=== PATIENT | female | born 1985 | race Caucasian/White ===

== ENCOUNTER → 2016-05-11 | Outpatient (CLI) | payer BC ==
[~2016-05-11] MED LIST: HYDR25SU20 PR; NITR1OIN TOP
--- NOTE | 2016-05-11 16:42 | MAMMOGRAPHY REPORT ---
UNILATERAL RIGHT DIGITAL DIAGNOSTIC MAMMOGRAM TOMOSYNTHESIS WITH CAD AND TARGETED RIGHT ULTRASOUND: 05/11/2016 CLINICAL HISTORY: 30-year-old woman with no family history of breast cancer presented to her physici an with pain in the right upper outer quadrant for a few months. On physical exam her doctor palpat ed a possible mass in the 10:00 axis, within the area of pain pointed out by the patient. TECHNIQUE: Right CC and MLO 2-D digital and tomosynthesis images, standard 2-D right XCCL, spot mag nification CC and ML views were obtained. COMPARISON: No prior exams were available for comparison. BREAST COMPOSITION: The tissue of the right breast is heterogeneously dense, which may obscure smal l masses. FINDINGS: A triangular skin marker overlies the upper outer posterior right breast, denoting the pal pable lump identified by the patient's physician. There are a few scattered punctate microcalcifica tions and a loose grouping of microcalcifications in the lower outer anterior right breast, for whic h additional spot magnification views were obtained. On spot magnification, the microcalcifications are loosely grouped, round and punctate and some possibly demonstrate layering on the spot magnific ation MLO view. They measure approximately 18 x 8 mm. However, given that no prior exams are avail able to assess stability and not all of the microcalcifications layer, options of stereotactic guide d biopsy versus short interval follow-up exams were provided. No other suspicious mass or senior net developer architect ural distortion is seen throughout the right breast. Targeted ultrasound was performed in the lateral right breast in the areas of pain pointed out by th e patient (approximate 9:00 to 11:00 axes, 10 cm from the nipple) particular attention was also paid to the palpable lump identified by the patient's physician, in which the patient was also able to p oint out in the approximate 10:00 breast, 9 cm from the nipple. Normal dense fibroglandular tissue is seen without a discrete solid or cystic mass throughout the visualized lateral right breast. IMPRESSION: ACR-BI-RADS CATEGORY 3: PROBABLY BENIGN, TARGETED ULTRASOUND ACR-BI-RADS CATEGORY 3: AL OBABLY BENIGN 1. There is no suspicious mammographic or sonographic abnormality in the upper outer quadrant of th e right breast to explain the nonfocal mastalgia. Therefore, clinical follow-up is recommended. 2. No suspicious mammographic or sonographic abnormality in the area of palpable lump identified by the patient's physician. Clinical follow-up is also recommended as biopsy of a clinically suspicio us mass should not be precluded by negative imaging. 3. A short interval follow-up diagnostic mammogram including spot magnification views of the right breast is recommended in 6 months, to ensure stability of a grouping of round and punctate microcalc ifications in the lower outer anterior breast. These most likely represent benign fibrocystic serrano es but given that no prior exams are available to assess stability and not all of the microcalcifica tions layer, close follow-up is needed. These results and recommendations were discussed with the patient at the time of the exam. Approximately 10% of breast cancers are not detected with mammography. A negative mammographic repor t should not delay biopsy if a clinically suggestive mass is present. Keeley Singh M.D. ay/:05/11/2016 14:57:41 Critical Care Clinical Nurse Specialist: Nicole PARKER(Kim)(Ingris), [facility] letter sent: Follow Up Recommended 3 BI-RADS Code: ACR-BI-RADS Category 3: Probably Benign Ultrasound BI-RADS: ACR-BI-RADS Category 3: P robably Benign
== END | disposition home or self-care (01) ==
LOC: C.MAMM 13:41
PROVIDERS: ATTEND Nurse Practitioner Family
DX: N63 Unspecified lump in breast (principal); R92.0 Mammographic microcalcification found on diagnostic imaging of breast

== ENCOUNTER → 2016-11-10 | Outpatient (CLI) | payer BC ==
--- NOTE | 2016-11-10 13:10 | MAMMOGRAPHY REPORT ---
UNILATERAL RIGHT DIGITAL DIAGNOSTIC MAMMOGRAM TOMOSYNTHESIS WITH CAD: 11/10/2016 CLINICAL HISTORY: 31 year-old woman presents to follow-up a grouping of round and punctate microcalci fications in the lower outer anterior right breast. She reports the somewhat cyclical fullness and p ain in the superior right breast is still present. TECHNIQUE: Right breast tomosynthesis CC and MLO, spot magnification right CC and ML views were obtai greyson. Current study was also evaluated with a Computer Aided Detection (CAD) system. COMPARISON: Comparison is made to exams dated: 05/11/2016 mammogram and 05/11/2016 ultrasound - [facility]. BREAST COMPOSITION: The tissue of the right breast is extremely dense, which lowers the sensitivity of mammography. FINDINGS: The parenchyma pattern of the right breast is similar to the 05/11/2016 mammograms. An 11 mm grouping of round and punctate microcalcifications in the lower outer anterior right breast is sta ble based on the reconstructed C-view appearance. No suspicious mass, architectural distortion or ne w microcalcifications are seen in the right breast. When evaluating the spot magnification views, so me of the microcalcifications currently appear to layer on the spot magnification ML view, suggesting benign milk of calcium. Additionally, they are less conspicuous and smudgy on the spot magnificatio n CC view. Given that not all of the calcifications layer, another short interval follow-up diagnost ic mammogram with repeat spot magnification views is recommended in 6 months to ensure longer stabili ty. IMPRESSION: ACR-BI-RADS CATEGORY 3: PROBABLY BENIGN 1. Another short interval follow-up right diagnostic mammogram and spot magnification views is recom mended to ensure longer stability of a probably benign grouping of round and punctate microcalcificat ions in the lower outer anterior right breast, some of which demonstrate layering on the current ML v iew suggesting benign milk of calcium. 2. Continued clinical follow-up is recommended for the cyclical pain and fullness in the superior ri ght breast. These results and recommendations were discussed with the patient at the time of the exam. She tenta tively scheduled a follow-up appointment prior to leaving our department. Approximately 10% of breast cancers are not detected with mammography. A negative mammographic report should not delay biopsy if a clinically suggestive mass is present. Keeley Singh M.D. ay/:11/10/2016 08:48:23 Pain Management Nurse: Hilda Sandoval RT(R)(M), [facility] letter sent: Follow Up Recommended 3 BI-RADS Code: ACR-BI-RADS Category 3: Probably Benign
== END | disposition home or self-care (01) ==
LOC: C.MAMM 08:02
PROVIDERS: ATTEND Nurse Practitioner Family
DX: N64.4 Mastodynia (principal); R92.0 Mammographic microcalcification found on diagnostic imaging of breast

== ENCOUNTER → 2017-05-13 | Outpatient (CLI) | payer OTHER ==
--- NOTE | 2017-05-13 14:35 | MAMMOGRAPHY REPORT ---
UNILATERAL RIGHT DIGITAL DIAGNOSTIC MAMMOGRAM TOMOSYNTHESIS WITH CAD: 05/13/2017 CLINICAL HISTORY: Short interval follow-up of right breast calcifications. The patient reports no cu rrent complaints. TECHNIQUE: Breast tomosynthesis in addition to standard 2D mammography was performed. Current study was also evaluated with a Computer Aided Detection (CAD) system. Right CC and MLO tomosynthesis imag es including C views and spot magnification right cc and ML views were obtained. COMPARISON: Comparison is made to exams dated: 11/10/2016 mammogram, 05/11/2016 mammogram, and 7 ultrasound - [facility]. BREAST COMPOSITION: The tissue of the right breast is extremely dense, which lowers the sensitivity of mammography. FINDINGS: Again noted are grouped calcifications within the right lower outer quadrant anteriorly. The calcifications are punctate/round in morphology, and some of the calcifications appear to layer o n the lateral view suggesting benign milk of calcium. The layering was best demonstrated on the prio r November 2016 exam. The calcifications are not significantly changed dating back to the April 2016 exam, and are probably benign and likely represent milk of calcium. The remainder of the right reinaldo st is stable compared to prior exams, without suspicious masses, calcifications, or areas of architec tural distortion noted. IMPRESSION: ACR-BI-RADS CATEGORY 3: PROBABLY BENIGN Grouped calcifications within the right lower outer quadrant are not significantly changed dating waldemar k to the April 2016 exam, and are probably benign and likely represent milk of calcium. Recommend follow-up diagnostic mammograms of the right breast in 12 months to confirm 2 years of stability. The patient has been verbally notified of the results. Approximately 10% of breast cancers are not detected with mammography. A negative mammographic report should not delay biopsy if a clinically suggestive mass is present. Tammi Lamar M.D. ah/:05/13/2017 08:27:39 [employer]: Nicole PARKER(R)(M), [facility] letter sent: Follow Up Recommended 3 BI-RADS Code: ACR-BI-RADS Category 3: Probably Benign
== END | disposition home or self-care (01) ==
LOC: C.MAMM 08:04
PROVIDERS: ATTEND Nurse Practitioner Family
DX: R92.1 Mammographic calcification found on diagnostic imaging of breast (principal)

== ENCOUNTER → 2017-07-19 | Outpatient (CLI) | payer OTHER | END | disposition home or self-care (01) | LOC: C.PAPS 10:11 | PROVIDERS: ATTEND Obstetrics & Gynecology | DX: Z01.419 Encounter for gynecological examination (general) (routine) without abnormal findings (principal) ==

== ENCOUNTER → 2017-08-18 | Day surgery (SDC) | payer OTHER ==
[2017-08-03 08:37] VITALS: Ht 154.9 cm; Wt 63.6 kg
[~2017-08-18] VITALS: Ht 154.9 cm; Wt 63.6 kg
[~2017-08-18] MED LIST changes: +ATROPINE SULFATE 0.1 MG/ML 5ML SYR IV PRN; +DEXAMETHASONE SOD INJ 4 MG/ML VIAL ONE; +EpHEDrine SULFATE INJ 50 MG/ML AMP IV PRN; +FENTANYL CITRATE INJ 50 MCG/1 ML 2 ML VIAL IV PRN; +FENTANYL CITRATE INJ 50 MCG/1 ML 2 ML VIAL ONE; +GLYCOPYRROLATE INJ 0.2 MG/ML VIAL ONE; +HYDR12.56 PO; +IBUPROFEN 600 MG TAB PO PRN; +KETOROLAC TROMETHAMINE 30 MG/ML VIAL IV. PRN; +KETOROLAC TROMETHAMINE 30 MG/ML VIAL ONE; +LACTATED RINGER'S 1000ML 1,000 ML IV SCH; +LIDOCAINE HCL 2% 2 ML VIAL (20MG/ML) ONE; +LIDOCAINE/EPINEPHRINE 1% 20 ML VIAL ONE; +LSN25 PO; +METOCLOPRAMIDE HCL INJ 5 MG/ML 2 ML VIAL IV PRN; +MIDAZOLAM HCL 1 MG/ML 2ML VIAL ONE; +NEOSTIGMINE METHYLSULFATE 5 MG/5 ML SYR ONE; +ONDANSETRON INJ 2 MG/ML 2 ML VIAL IV PRN; +ONDANSETRON INJ 2 MG/ML 2 ML VIAL ONE; +OXYCODONE/ACETAMINOPHEN 5-325 TAB PO PRN; +PROPOFOL IV EMULSION 10 MG/ML 20 ML VIAL ONE; +ROCURONIUM BROMIDE 10 MG/ML 5 ML VIAL ONE; +SODIUM CHLORIDE 0.9% 1000ML 1,000 ML IV SCH
--- NOTE | 2017-08-18 11:58 | History & Physical Bridge - SC ---
H&P Re-Evaluation Bridge Note: I have examined the patient, reviewed the History & Physical and in the interval since the performance of the History & Physical I have noted the following changes of clinical significance: No changes noted
--- NOTE | 2017-08-18 12:00 | Discharge Instructions-SurgCtr ---
Discharge Instructions Date of Service August 18, 2017. Visit Reason for Visit: Request For Sterilization Discharge Discharge Diagnosis / Problem: Sterilization and removal of nexplanon Discharge Goals Goal(s): Specific goals Activity Recommendations Activity Limitations: per Instructions/Follow-up section Anesthesia . Post Anesthesia Instructions: If you have had General Anesthesia or IV Sedation: * Do not drive today. * Resume driving when surgeon permits. * Do not make important decisions or sign legal documents today. * Call surgeon for: 1. Temperature elevations greater than 101 degrees F. 2. Uncontrollable pain. 3. Excessive bleeding. 4. Persistent nausea and vomiting. 5. Medication intolerance (nausea, vomiting or rash). * For nausea and vomiting use only clear liquids such as: tea, soda, bouillon until nausea subsides, then gradually increase diet as tolerated. * If you have any concerns or questions, call your surgeon's office. If physician is unavailable and it is an emergency, call 911 or go to the nearest emergency room. . Instructions / Follow-Up Instructions / Follow-Up ACTIVITY RECOMMENDATIONS: * Rest the first 2-3 days. You should be back to your normal activity levels by day 3. * No heavy lifting for 2 weeks. * No intercourse, tampons or douching for 1-2 weeks. * You may shower the next day. * Do not drive anytime that you are taking narcotic pain medicines. RETURN TO SCHOOL/WORK: * May return to school or work after 2-3 days. DIET: Nausea may occur in the immediate post-operative period. If so, take clear liquids such as tea, bouillon, apple juice until all nausea has subsided, then resume usual diet. MEDICATIONS: Resume previous medications unless instructed otherwise by your surgeon. Ibuprofen 200mg 2-3 tablets every 4-6 hours as needed -- OR -- Aleve 2 tablets every 8-12 hours as needed for post-operative discomfort Medications are over the counter. Tylenol may be used if above medications are contraindicated or not preferred. Medication should be taken with food or milk. Do not take on an empty stomach. SPECIAL CARE INSTRUCTIONS: * Check temperature twice daily for one week. report any elevation over 101 degrees. * You may experience some vagina spotting and/or bleeding. This is normal for 1 -2 weeks and should not be heavier than a normal period. If it is unusual in amount, call your physician. * Post-operative discomfort may consist of a sore throat, a "bloated" feeling and pain in the shoulders. these are normal symptoms, which usually only last for 2-3 days. * Remove band-aids tomorrow and shower. There is no need to replace band-aids unless there is drainage or discomfort. FOLLOW UP VISIT: Call your doctor's office for a post-operative 2 week visit if not already scheduled. Diet Recommendations Home Diet: resume previous diet Pending Studies Studies pending at discharge: no Medical Emergencies . Who to Call and When: Medical Emergencies: If at any time you feel your situation is an emergency, please call 911 immediately. . Non-Emergent Contact Non-Emergency issues call your: Primary Care Provider . . "Provider Documentation" section prepared by Yodit Stokes. . [place] Drug Monitoring Program Search Results: no issues identified
--- NOTE | 2017-08-18 12:51 | [facility] Post Operative Brief Note ---
Immediate Operative Summary Operative Date August 18, 2017. Pre-Operative Diagnosis Request for Sterilization, removal of nexplanon Post-Operative Diagnosis Same Procedure(s) Performed Laparoscopic Tubal Sterilization via bilateral tubal cautery, Nexplanon Removal from Left Arm Surgeon Dr. Stokes Psychiatric Cns Surgeon(s) None Estimated Blood Loss 2ML Findings Consistent with Post-Op Diagnosis Specimens NONE Drains None Anesthesia Type General Complication(s) none Disposition Accompanied Pt To Recovery: no Disposition: Recovery Room / PACU
[2017-08-18 13:34] VITALS: TEMP 36.1
--- NOTE | 2017-08-18 13:41 | Anesthesia Progress Nt - [facility] ---
Anesthesia Post Op Note Date & Time August 18, 2017 at 13:41 Vital Signs Pain Intensity: 2 Vital Signs Past 12 Hours Date Time Temp Pulse Resp B/P (MAP) Pulse Ox O2 Delivery O2 Flow Rate FiO2 08/18/17 13:27 86 15 98 08/18/17 13:27 85 15 08/18/17 13:25 119/76 08/18/17 13:25 36.2 99 Room Air 08/18/17 13:22 72 15 08/18/17 13:22 72 15 98 08/18/17 13:20 126/79 08/18/17 13:17 81 16 08/18/17 13:17 83 16 99 08/18/17 13:16 76 15 08/18/17 13:16 76 15 100 08/18/17 13:15 126/80 08/18/17 13:11 82 16 08/18/17 13:11 82 16 100 08/18/17 13:10 134/79 08/18/17 13:07 90 12 08/18/17 13:07 89 12 100 08/18/17 13:06 93 10 08/18/17 13:06 92 10 100 08/18/17 13:05 133/81 08/18/17 13:01 108 15 95 08/18/17 13:01 107 15 08/18/17 13:00 125/85 08/18/17 12:56 36.7 105 16 143/96 100 Mask 5 08/18/17 12:56 113 143/96 100 08/18/17 12:56 113 08/18/17 11:13 36.9 102 18 127/98 (108) 97 Room Air Notes Mental Status: alert / awake / arousable, participated in evaluation Pt Amnestic to Procedure: Yes Nausea / Vomiting: adequately controlled Pain: adequately controlled Airway Patency, RR, SpO2: stable & adequate BP & HR: stable & adequate Hydration State: stable & adequate Anesthetic Complications: no major complications apparent
[2017-08-18 14:04] VITALS: BP 121/81; PULSE 85; O2SAT 97
--- NOTE | 2017-08-18 19:23 | OPERATIVE REPORT ---
DATE OF OPERATION: 08/18/2017 PREOPERATIVE DIAGNOSES: Request for sterilization and removal of Nexplanon. POSTOPERATIVE DIAGNOSES: Request for sterilization and removal of Nexplanon. PROCEDURE: Laparoscopic tubal sterilization via bilateral tubal cautery and Nexplanon removal from left arm. SURGEON: Dr. Stokes. BLACK TOP RAKER: None. ESTIMATED BLOOD LOSS: 2 mL FINDINGS: Consistent with postop diagnosis. SPECIMENS: None. DRAINS: None. ANESTHESIA: General. COMPLICATIONS: None. DISPOSITION: Stable to recovery. DESCRIPTION OF PROCEDURE: Judy was brought to the operating room after consent for sterilization was confirmed again in the preop area. General anesthesia was established. The patient was positioned supine, in a frogleg position. A Shnaks catheter was placed. Patient was then repositioned supine and the abdomen was prepped and draped. We first addressed the tubal ligation by making an umbilical incision, 5 mm in length and then making an optical entry to the abdomen using a 5 mm scope. This was done without complication. The abdomen was insufflated with CO2 and the patient was placed in steep Trendelenburg. Visualization revealed a normal uterus, tubes, and ovaries bilaterally. Under direct visualization, a suprapubic port was then placed. This was also done without complication. A blunt probe was used to sweep the bowel away from the reproductive organs. The right tube was then grasped and elevated using a Princess clamp and while carefully holding the tube away from all other organs, cautery was applied to destroy an approximately 4 cm long section of the tube. The left tube was then gently grasped and elevated and again while being held away from all the other nearby organs, this tube was then cauterized using the Kleppinger along at least to 4 cm portion of tube. Once this was completed, all instruments were withdrawn. The gas was allowed to escape the abdomen and Dermabond was applied to the incision sites. Attention was then turned to the left arm where the Nexplanon had been palpated and initialed prior to the patient being put under anesthesia. This area was reidentified, prepped with Betadine. A 3 mm incision was made using a 15 blade over the distal end of the Nexplanon and the Nexplanon was then extracted through this incision without any difficulty whatsoever. 1% lidocaine with epinephrine 2 mL total volume was then infiltrated along the site to aid the patient with postoperative discomfort. A Band-Aid was placed over the incision. Procedure was then brought to completion. The Shanks catheter was removed and the patient was transferred in stable condition to recovery. I attest to the content of the Intraoperative Record and any orders documented therein. Any exception s are noted below.
== END | disposition home or self-care (01) ==
LOC: X.SURG 11:04
PROVIDERS: ATTEND Obstetrics & Gynecology
DX: Z30.2 Encounter for sterilization (principal); I10 Essential (primary) hypertension; K64.9 Unspecified hemorrhoids; Z82.49 Family history of ischemic heart disease and other diseases of the circulatory system